=== PATIENT | male | born 1970 | race Caucasian/White ===

== ENCOUNTER 2021-03-01 09:46 | Emergency (ER) | payer MEDICAID ==
[~2021-03-01] VITALS: Ht 180.3 cm; Wt 113.4 kg
[2021-03-01 10:01] VITALS: BP 129/70
--- NOTE | 2021-03-01 10:08 | NUR ---
TENT 1
--- NOTE | 2021-03-01 10:16 | NUR ---
PT AMB TO BED 2.
--- NOTE | 2021-03-01 10:18 | NUR ---
C/O COUGH, BODY ACHE X 2 DAYS. 10/23 MID & LOWER BACK PAIN AFTER COUGHING. DENIES DYSURIA. COVID TESTED POSITIVE APR 2020. PMH: DENIES
[2021-03-01] MEDS ORDERED: PRED20TA5 PO (10:29)
[2021-03-01] MEDS ORDERED: IBUP-2213 PO (10:29)
[2021-03-01 11:42] VITALS: BP 124/82
--- NOTE | 2021-03-01 11:42 | NUR ---
Patient discharged with v/s stable. Written and verbal after care instructions given and explained. Patient alert, oriented and verbalized understanding of instructions. Ambulatory with steady gait. All questions addressed prior to discharge. ID band removed. Patient advised to follow up with PMD. Rx of IBUPROFEN AND PREDNISONE given. Patient educated on indication of medication including possible reaction and side effects. Opportunity to ask questions provided and answered.
== END 2021-03-01 11:42 | disposition home or self-care (01) ==
LOC: MED 09:46
DX: R05.9 Cough, unspecified (principal); M54.50 Low back pain, unspecified; F17.200 Nicotine dependence, unspecified, uncomplicated
CPT/HCPCS: 99283

== ENCOUNTER 2021-03-02 19:14 | Emergency (ER) | payer MEDICAID ==
[~2021-03-02] VITALS: Ht 180.3 cm; Wt 131.1 kg
[~2021-03-02 19:14] MED LIST: IBUP-2213 PO; PRED20TA5 PO
[2021-03-02 19:31] VITALS: BP 153/89
[2021-03-02] MEDS ORDERED: IBUPROFEN CHILDRENS 100 MG/5 ML UDC ONE (19:54)
--- NOTE | 2021-03-02 20:25 | NUR ---
SWABS FOR BRENTON RAHMAN, SENT TO LAB
--- NOTE | 2021-03-02 20:33 | NUR ---
NO NURSING INTERVENTIONS PROVIDED
--- NOTE | 2021-03-02 20:34 | NUR ---
PATIENT LEFT WITHOUT D/C PAPERWORK.
== END 2021-03-02 20:34 | disposition home or self-care (01) ==
LOC: MED 19:14
DX: R51.9 Headache, unspecified (principal); Z20.822 Contact with and (suspected) exposure to COVID-19; F17.210 Nicotine dependence, cigarettes, uncomplicated; Z79.899 Other long term (current) drug therapy; Z71.6 Tobacco abuse counseling
CPT/HCPCS: 87426; 99283; U0003

== ENCOUNTER 2021-04-23 22:05 | Emergency (ER) | payer MEDICAID ==
[~2021-04-23] VITALS: Ht 180.3 cm; Wt 124.7 kg
[2021-04-23] MEDS ORDERED: ALBUTEROL SULFATE/IPRATROPIU 3 ML SOL IH ONE ×2 (22:42→22:45)
[2021-04-23 23:04] VITALS: BP 156/84
[2021-04-23] MEDS ORDERED: predniSONE 20 MG TAB PO ONE (23:20)
[2021-04-24] MEDS ORDERED: BENZ200C4 PO (00:15)
[2021-04-24] MEDS ORDERED: ALBU0.0912 INH (00:15)
[2021-04-24] MEDS ORDERED: PRED20TA5 PO (00:15)
[2021-04-24 00:23] VITALS: BP 156/84
--- NOTE | 2021-04-24 00:24 | NUR ---
Patient discharged with v/s stable. Written and verbal after care instructions given and explained. Patient verbalized understanding. Ambulatory with steady gait. All questions addressed prior to discharge. Advised to follow up with PMD.
== END 2021-04-24 00:19 | disposition home or self-care (01) ==
LOC: MED 22:05
DX: J44.1 Chronic obstructive pulmonary disease with (acute) exacerbation (principal); R05.9 Cough, unspecified; Z79.899 Other long term (current) drug therapy
CPT/HCPCS: 71045; 94640; 99283; J7512; 99282

== ENCOUNTER 2021-05-29 15:56 | Emergency (ER) | payer MEDICAID ==
[~2021-05-29 15:56] MED LIST changes: +ALBU0.0912 INH; +BENZ200C4 PO
--- NOTE | 2021-05-29 16:50 | NUR ---
called name at this time, no answer in lobby or tent
--- NOTE | 2021-05-29 17:00 | NUR ---
called name at this time, no answer in lobby or tent
--- NOTE | 2021-05-29 17:29 | NUR ---
lwbs at this time
--- NOTE | 2021-05-29 17:29 | NUR ---
called name at this time, no answer in lobby or tent
--- NOTE | 2021-05-29 17:30 | NUR ---
PATIENT LEFT WITHOUT BEING SEEN BY DR. REDD. NO FURTHER CARE PROVIDED FOR PATIENT.
[2021-05-30] MEDS ORDERED: ONDA-188 SL (10:33)
[2021-05-30] MEDS ORDERED: NAPR-54 PO (10:33)
== END 2021-05-29 17:30 | disposition left against medical advice (07) ==
LOC: MED 15:56
DX: Z53.21 Procedure and treatment not carried out due to patient leaving prior to being seen by health care provider (principal)

== ENCOUNTER 2021-05-30 09:11 | Emergency (ER) | payer MEDICAID ==
[~2021-05-30] VITALS: Ht 180.3 cm; Wt 136.1 kg
[2021-05-30 09:23] VITALS: BP 154/77
[2021-05-30] MEDS ORDERED: ACETAMINOPHEN 325 MG TAB PO ONE (09:50)
[2021-05-30] MEDS ORDERED: ONDA-188 SL (10:33)
[2021-05-30] MEDS ORDERED: NAPR-54 PO (10:33)
[2021-05-30] MEDS ORDERED: ACETAMINOPHEN 325 MG TAB ONE (10:52)
--- NOTE | 2021-05-30 10:57 | NUR ---
50/M BIB SELF WITH C/O HEADACHE, NIGHT SWEATS AND URINARY FREQUENCY X3 DAYS. DENIES RECENT SICK CONTACTS, DENIES DYSURIA, HEMATURIA, FEVERS. REPORTS BEING TESTED FOR COVID YESTERDAY AND STATES TEST WAS NEGATIVE, STATES HE IS CURRENTLY ON ABX FOR AN INFECTED TOOTH AND IS UNSURE IF IT CAN BE RELATED TO SYMPTOMS. DENIES PAIN AT THIS TIME.
[2021-05-30 11:20] VITALS: BP 154/77
--- NOTE | 2021-05-30 11:20 | NUR ---
Patient discharged with v/s stable. Written and verbal after care instructions ABOUT HYPERGLYCEMIA AND VIRAL ILLNESS given and explained. Patient alert, oriented and verbalized understanding of instructions. Ambulatory with steady gait. All questions addressed prior to discharge. ID band removed. Patient advised to follow up with PMD. Rx of NAPROSYN AND ZOFRAN given. Patient educated on indication of medication including possible reaction and side effects. Opportunity to ask questions provided and answered.
== END 2021-05-30 11:20 | disposition home or self-care (01) ==
LOC: MED 09:11
DX: B34.9 Viral infection, unspecified (principal); E11.65 Type 2 diabetes mellitus with hyperglycemia; I10 Essential (primary) hypertension
CPT/HCPCS: 81002; 99283

== ENCOUNTER 2021-11-08 09:45 | Emergency (ER) | payer MEDICAID ==
[~2021-11-08] VITALS: Ht 154.9 cm; Wt 133.9 kg
[~2021-11-08 09:45] MED LIST changes: +NAPR-54 PO; +ONDA-188 SL
[2021-11-08 10:02] VITALS: BP 131/79
--- NOTE | 2021-11-08 10:11 | NUR ---
PATIENT AMBULATED TO BED 3
[2021-11-08] MEDS ORDERED: IBUPROFEN 600 MG TAB PO ONE (10:40)
[2021-11-08] MEDS ORDERED: ACETAMINOPHEN 325 MG TAB PO ONE (10:40)
--- NOTE | 2021-11-08 10:49 | NUR ---
pt c/o muscle cramps to bilateral legs x3 days, also c/o left wrist numbness intermittment x1 month.
--- NOTE | 2021-11-08 11:01 | NUR ---
PT PLACED IN VELCRO WRIST SPLINT. CMS WNL BEFORE AND AFTER.
[2021-11-08 11:06] LABS: ANION GAP 9.1 (8-16); CARBON DIOXIDE 29.3 mmol/L (21-32); CREATININE 1.1 mg/dL (0.6-1.3); POTASSIUM 4.4 mmol/L (3.5-5.1)
[2021-11-08 11:07] LABS: BASOPHILS % (AUTO) 0.8 % (0.0-2.0); EOSINOPHILS # (AUTO) 0.4 K/uL (0-0.4); EOSINOPHILS % (AUTO) 5.8 % (0.0-4.0); HEMATOCRIT 45.2 % (36-52); HEMOGLOBIN 15.5 g/dL (12.0-18.0); LYMPHOCYTES # (AUTO) 1.5 K/uL (2.0-11.5); LYMPHOCYTES % (AUTO) 24.2 % (20.5-51.1); MEAN CORPUSCULAR HEMOGLOBIN 30 pg (27-31); MEAN CORPUSCULAR HGB CONC 34 g/dL (33-37); MEAN CORPUSCULAR VOLUME 87.8 fL (80-94); MONOCYTES # (AUTO) 0.8 K/uL (0.8-1.0); MONOCYTES % (AUTO) 12.2 % (1.7-9.3); NEUTROPHILS # (AUTO) 3.6 K/uL (1.8-7.7); PLATELET COUNT (AUTO) 248 K/uL (140-450); RED BLOOD CELL COUNT(AUTO) 5.15 MIL/uL (4.20-6.10); RED CELL DISTRIBUTION WIDTH 13.3 % (11.6-13.7); WHITE BLOOD COUNT (AUTO) 6.4 K/uL (4.8-10.8)
[2021-11-08 11:11] LABS: MAGNESIUM 2.3 mg/dL (1.8-2.4)
[2021-11-08] MEDS ORDERED: NAPR-54 PO (11:29)
[2021-11-08] MEDS ORDERED: CYCL-654 PO (11:29)
--- NOTE | 2021-11-08 11:51 | NUR ---
Patient discharged with v/s stable. Written and verbal after care instructions given and explained. Patient alert, oriented and verbalized understanding of instructions. Ambulatory with steady gait. All questions addressed prior to discharge. ID band removed. Patient advised to follow up with PMD. Rx of flexeril, naproxen given. Patient educated on indication of medication including possible reaction and side effects. Opportunity to ask questions provided and answered.
== END 2021-11-08 11:50 | disposition home or self-care (01) ==
LOC: MED 09:45
DX: M62.838 Other muscle spasm (principal); G25.81 Restless legs syndrome; E11.9 Type 2 diabetes mellitus without complications; I10 Essential (primary) hypertension; Z79.1 Long term (current) use of non-steroidal anti-inflammatories (NSAID); Z79.899 Other long term (current) drug therapy
CPT/HCPCS: 36415; 80048; 81002; 82550; 83735; 85025; 99283

== ENCOUNTER 2021-11-29 07:43 | Emergency (ER) | payer MEDICAID ==
[~2021-11-29] VITALS: Ht 180.3 cm; Wt 134.3 kg
[~2021-11-29 07:43] MED LIST changes: +CYCL-654 PO; -IBUP-2213 PO
[2021-11-29 08:04] VITALS: BP 120/68
[2021-11-29] MEDS ORDERED: EPINEPHrine 1 MG/ML AMP IM ONE (08:20)
[2021-11-29] MEDS ORDERED: diphenhydrAMINE 50 MG/ML VIAL IVP ONE (08:20)
[2021-11-29] MEDS ORDERED: methylPREDNISolone SS 125 MG/2 ML VIAL IVP ONE (08:20)
--- NOTE | 2021-11-29 08:23 | NUR ---
Patient ambulated with steady gait to bed 8.
[2021-11-29 08:47] LABS: BASOPHILS # (AUTO) 0.1 K/uL (0.00-0.22); BASOPHILS % (AUTO) 0.8 % (0.0-2.0); EOSINOPHILS # (AUTO) 0.4 K/uL (0-0.4); EOSINOPHILS % (AUTO) 5.7 % (0.0-4.0); HEMATOCRIT 46.2 % (36-52); HEMOGLOBIN 15.9 g/dL (12.0-18.0); LYMPHOCYTES # (AUTO) 1.4 K/uL (2.0-11.5); LYMPHOCYTES % (AUTO) 19.8 % (20.5-51.1); MEAN CORPUSCULAR HEMOGLOBIN 30 pg (27-31); MEAN CORPUSCULAR HGB CONC 35 g/dL (33-37); MEAN CORPUSCULAR VOLUME 87.3 fL (80-94); MONOCYTES # (AUTO) 0.7 K/uL (0.8-1.0); MONOCYTES % (AUTO) 10.6 % (1.7-9.3); NEUTROPHILS # (AUTO) 4.4 K/uL (1.8-7.7); NEUTROPHILS % (AUTO) 63.1 % (42.2-75.2); PLATELET COUNT (AUTO) 255 K/uL (140-450); RED BLOOD CELL COUNT(AUTO) 5.29 MIL/uL (4.20-6.10); RED CELL DISTRIBUTION WIDTH 13.4 % (11.6-13.7)
--- NOTE | 2021-11-29 08:57 | NUR ---
PT IN GOWN ON BEDSIDE MONITOR
[2021-11-29] MEDS ORDERED: AMPICILLIN/SULBACTAM 3 GM in NACL 0.9% 100 ML IV ONE (09:25)
[2021-11-29 09:36] LABS: ALBUMIN 3.5 g/dL (3.4-5.0); ANION GAP 9.7 (8-16); CARBON DIOXIDE 31.3 mmol/L (21-32); CREATININE 1.1 mg/dL (0.6-1.3); TOTAL BILIRUBIN 0.2 mg/dL (0.0-1.0)
[2021-11-29] MEDS ORDERED: AMPICILLIN/SULBACTAM 3 GM VIAL ONE (09:36)
--- NOTE | 2021-11-29 09:52 | NUR ---
PT TO CT
--- NOTE | 2021-11-29 09:58 | NUR ---
50YR OLD MALE BIB SELF C/O THROAT "SWELLING" X THIS AM. DENIES SOB DENIES CP . SP02 93-94% RA SPEAKING IN FULL SENTENCES. PT ON BEDSIDE MONITOR. HOB ELEVATED. PT STATES NO KNOWN ALLERGIES TO DRUG OR FOOD. 20G IV CATH PLACED L AC. SIDE RAILS UP X1 BED AT LOWEST POSITION NKDA NO HX TO DATE
[2021-11-29 10:55] VITALS: BP 111/57
[2021-11-29] MEDS ORDERED: METF-346 PO (11:29)
[2021-11-29] MEDS ORDERED: HYDR-4004 PO (11:30)
--- NOTE | 2021-11-29 11:34 | NUR ---
TRANSFER TO HIGHER LEVEL OF CARE
--- NOTE | 2021-11-29 11:41 | NUR ---
PT RESTING RESP EVEN AND UNLABORED . PT ON MONITOR . AMBULATE TO BATHROOM WITH STEADY GAIT
--- NOTE | 2021-11-29 11:49 | NUR ---
COVID SWAB COLLECTED
--- NOTE | 2021-11-29 13:05 | NUR ---
PT ON FULL LIQUID DIET PER DR LAKE
[2021-11-29] MEDS ORDERED: KETOROLAC 15 MG/ML VIAL IVP ONE (15:30)
--- NOTE | 2021-11-29 16:00 | NUR ---
DR BLANCO SPOKE WITH PATIENT ON THE RISK ON OF AMA. PATIENT WANTS TO CONTINUE TO SIGN OUT FOR REASONS OF WORK RELATED ISSUES. PATIENT HAS VERBALLY EXPRESSED THE UNDERSTANDING OF AMA AND HIS HEALTH. HE WOULD LIKE TO CONTINUE WITH SIGNING OUT AMA AND HAS INTENTIONS OF BEING SEEN AT A HIGHER LEVEL OF CARE THERE AFTER
[2021-11-29] MEDS ORDERED: AMOX1TAB8 PO (16:20)
[2021-11-29] MEDS ORDERED: DEXA6TAB8 PO (16:20)
[2021-11-29] MEDS ORDERED: IBUP-2213 PO (16:20)
[2021-11-29] MEDS ORDERED: FAMO-90 PO (16:20)
--- NOTE | 2021-11-29 16:20 | NUR ---
Patient does not wish to proceed with medical care recommended by DR BLANCO. Patient given information related to possible complications, up to and including , which could occur as a result of leaving hospital at this time. Patient verbalizes understanding of risks involved leaving against medical advice. Patient has signed AMA form.
== END 2021-11-29 16:20 | disposition left against medical advice (07) ==
LOC: MED 07:43
DX: R07.0 Pain in throat (principal); Z20.822 Contact with and (suspected) exposure to COVID-19; K12.2 Cellulitis and abscess of mouth; J03.90 Acute tonsillitis, unspecified; E11.9 Type 2 diabetes mellitus without complications; I10 Essential (primary) hypertension; Z79.84 Long term (current) use of oral hypoglycemic drugs; Z79.899 Other long term (current) drug therapy
CPT/HCPCS: 36415; 70491; 80053; 85025; 85651; 86140; 87040; 87426; 87804; 96365; 96372; 96375; 99285; J0171; J0295; J1200; J1885; J2930; Q9967

== ENCOUNTER 2021-12-24 15:10 | Emergency (ER) | payer MEDICAID ==
[~2021-12-24] VITALS: Ht 180.3 cm; Wt 133.9 kg
[~2021-12-24 15:10] MED LIST changes: -ALBU0.0912 INH; +AMOX1TAB8 PO; -BENZ200C4 PO; -CYCL-654 PO; +DEXA6TAB8 PO; +FAMO-90 PO; +HYDR-4004 PO; +IBUP-2213 PO; +METF-346 PO; -NAPR-54 PO; -ONDA-188 SL; -PRED20TA5 PO
[2021-12-24 15:24] VITALS: BP 101/70
--- NOTE | 2021-12-24 15:34 | NUR ---
PT AMBULATED TO ER BED 1
--- NOTE | 2021-12-24 15:41 | NUR ---
WALKED IN C/O FATIGUE, DIZZINESS AND VOMITING ONSET TODAY. STATES TAKING AT HOME COVID TEST AND RESULTED NEGATIVE. PT STATES FEELING WEAK FOR 4 DAYS. VS 154. AAOX4, AMBULATORY, AFEBRILE AT BEDSIDE. HX: PREDM, COPD, HTN.
[2021-12-24] MEDS ORDERED: KETOROLAC 30 MG/ML VIAL IVP ONE (15:50)
[2021-12-24] MEDS ORDERED: NACL 0.9% 1,000 ML IV SCH (15:50)
[2021-12-24] MEDS ORDERED: ONDANSETRON 4 MG/2 ML VIAL IVP ONE (16:00)
[2021-12-24 16:24] LABS: BASOPHILS # (AUTO) 0.1 K/uL (0.00-0.22); BASOPHILS % (AUTO) 0.5 % (0.0-2.0); EOSINOPHILS # (AUTO) 0.3 K/uL (0-0.4); EOSINOPHILS % (AUTO) 2.1 % (0.0-4.0); HEMATOCRIT 49.7 % (36-52); HEMOGLOBIN 16.8 g/dL (12.0-18.0); LYMPHOCYTES # (AUTO) 1.3 K/uL (2.0-11.5); LYMPHOCYTES % (AUTO) 10.9 % (20.5-51.1); MEAN CORPUSCULAR HEMOGLOBIN 30 pg (27-31); MEAN CORPUSCULAR HGB CONC 34 g/dL (33-37); MEAN CORPUSCULAR VOLUME 87.9 fL (80-94); MONOCYTES # (AUTO) 1.2 K/uL (0.8-1.0); NEUTROPHILS # (AUTO) 9.2 K/uL (1.8-7.7); NEUTROPHILS % (AUTO) 76.5 % (42.2-75.2); PLATELET COUNT (AUTO) 328 K/uL (140-450); RED BLOOD CELL COUNT(AUTO) 5.65 MIL/uL (4.20-6.10); RED CELL DISTRIBUTION WIDTH 13.5 % (11.6-13.7); WHITE BLOOD COUNT (AUTO) 12.1 K/uL (4.8-10.8)
[2021-12-24 16:43] LABS: ALBUMIN 3.8 g/dL (3.4-5.0); ANION GAP 11.7 (8-16); ASPARTATE AMINOTRANSFERASE 34 U/L (15-37); CHLORIDE 101 mmol/L (98-107); CREATININE 2.4 mg/dL (0.6-1.3); FREE T4 (FREE THYROXINE) 0.83 ng/dL (0.76-1.46); GFR ARICAN-AMERICAN 37 mL/min (>90); GLUCOSE 117 mg/dL (74-106); POTASSIUM 4.7 mmol/L (3.5-5.1); SODIUM SERUM 140 mmol/L (136-145); TOTAL BILIRUBIN 0.3 mg/dL (0.0-1.0); UREA NITROGEN, BLOOD 29 mg/dL (7-18)
[2021-12-24 17:51] VITALS: BP 119/68
--- NOTE | 2021-12-25 08:31 | NUR ---
LATE ENTRY. NS 0.9% BOLUS DISCONTINUED AT 1908 ON 12/24/21
== END 2021-12-24 19:08 | disposition home or self-care (01) ==
LOC: MED 15:10
DX: N17.9 Acute kidney failure, unspecified (principal); Z20.822 Contact with and (suspected) exposure to COVID-19; E86.0 Dehydration; R53.1 Weakness; E11.9 Type 2 diabetes mellitus without complications; I10 Essential (primary) hypertension; F17.210 Nicotine dependence, cigarettes, uncomplicated; Z79.899 Other long term (current) drug therapy; Z79.84 Long term (current) use of oral hypoglycemic drugs
CPT/HCPCS: 36415; 80053; 81002; 82550; 84439; 84484; 85025; 87426; 87804; 93005; 96361; 96374; 99284; J2405; J7030

== ENCOUNTER 2022-04-12 14:22 | Emergency (ER) | payer MEDICAID ==
[~2022-04-12] VITALS: Ht 180.3 cm; Wt 127.0 kg
[2022-04-12 15:01] VITALS: BP 142/90
[2022-04-12 15:25] LABS: BASOPHILS # (AUTO) 0.1 K/uL (0.00-0.22); BASOPHILS % (AUTO) 0.6 % (0.0-2.0); EOSINOPHILS # (AUTO) 0.3 K/uL (0-0.4); EOSINOPHILS % (AUTO) 2.6 % (0.0-4.0); HEMOGLOBIN 15.8 g/dL (12.0-18.0); LYMPHOCYTES # (AUTO) 0.7 K/uL (2.0-11.5); LYMPHOCYTES % (AUTO) 6.4 % (20.5-51.1); MEAN CORPUSCULAR HEMOGLOBIN 30 pg (27-31); MEAN CORPUSCULAR HGB CONC 34 g/dL (33-37); MEAN CORPUSCULAR VOLUME 87.2 fL (80-94); MONOCYTES % (AUTO) 9.9 % (1.7-9.3); NEUTROPHILS # (AUTO) 8.2 K/uL (1.8-7.7); NEUTROPHILS % (AUTO) 80.5 % (42.2-75.2); PLATELET COUNT (AUTO) 198 K/uL (140-450); RED BLOOD CELL COUNT(AUTO) 5.28 MIL/uL (4.20-6.10); RED CELL DISTRIBUTION WIDTH 13.1 % (11.6-13.7); WHITE BLOOD COUNT (AUTO) 10.2 K/uL (4.8-10.8)
[2022-04-12] MEDS ORDERED: KETOROLAC 30 MG/ML VIAL ONE (15:54)
[2022-04-12] MEDS ORDERED: KETOROLAC 30 MG/ML VIAL IM ONE (15:55)
[2022-04-12 15:58] LABS: ALBUMIN 3.7 g/dL (3.4-5.0); ANION GAP 11.9 (8-16); CARBON DIOXIDE 30.5 mmol/L (21-32); CREATININE 1.3 mg/dL (0.6-1.3); POTASSIUM 4.4 mmol/L (3.5-5.1); TOTAL BILIRUBIN 0.4 mg/dL (0.0-1.0)
--- NOTE | 2022-04-12 16:00 | NUR ---
SWABBED AND SENT TO LAB
[2022-04-12] MEDS ORDERED: ONDA-188 SL (17:28)
[2022-04-12] MEDS ORDERED: ROBAC PO (17:28)
[2022-04-12] MEDS ORDERED: IBUP-2213 PO (17:28)
[2022-04-12] MEDS ORDERED: TAM75 PO (17:51)
--- NOTE | 2022-04-12 17:51 | NUR ---
Patient discharged with v/s stable. Written and verbal after care instructions ABOUT MUSCLE PAIN, VIRAL ILLNESS given and explained. Patient alert, oriented and verbalized understanding of instructions. Ambulatory with steady gait. All questions addressed prior to discharge. ID band removed. Patient advised to follow up with PMD. Rx of TAMIFLU, GUAIFENESIN-CODEINE SYRUP, ZOFRAN ODT, IBUPROFEN given. Patient educated on indication of medication including possible reaction and side effects. Opportunity to ask questions provided and answered.
== END 2022-04-12 17:51 | disposition home or self-care (01) ==
LOC: MED 14:22
DX: J10.1 Influenza due to other identified influenza virus with other respiratory manifestations (principal); Z20.822 Contact with and (suspected) exposure to COVID-19; I10 Essential (primary) hypertension; E11.9 Type 2 diabetes mellitus without complications; Z79.4 Long term (current) use of insulin; Z79.899 Other long term (current) drug therapy
CPT/HCPCS: 36415; 80053; 83690; 85025; 87426; 87804; 96372; 99283; J1885

== ENCOUNTER 2022-10-04 17:33 | Emergency (ER) | payer MEDICAID ==
[~2022-10-04] VITALS: Ht 180.3 cm; Wt 124.7 kg
[~2022-10-04 17:33] MED LIST changes: +ONDA-188 SL; +ROBAC PO; +TAM75 PO
[2022-10-04 18:57] VITALS: BP 119/89
[2022-10-04] MEDS ORDERED: KETOROLAC 60 MG/2 ML VIAL IM ONE (23:55)
[2022-10-05] MEDS ORDERED: POTA8CAP4 PO (00:04)
--- NOTE | 2022-10-05 00:10 | NUR ---
Patient discharged with v/s stable. Written and verbal after care instructions given and explained. Patient alert, oriented and verbalized understanding of instructions. Ambulatory with steady gait. All questions addressed prior to discharge. ID band removed. Patient advised to follow up with PMD. Rx of POTASSIUM CHLORIDE given. Patient educated on indication of medication including possible reaction and side effects. Opportunity to ask questions provided and answered.
== END 2022-10-05 00:10 | disposition home or self-care (01) ==
LOC: MED 17:33
DX: R25.2 Cramp and spasm (principal); E11.9 Type 2 diabetes mellitus without complications; I10 Essential (primary) hypertension; Z79.899 Other long term (current) drug therapy; Z79.1 Long term (current) use of non-steroidal anti-inflammatories (NSAID)
CPT/HCPCS: 93971; 96372; 99285; J1885; Q0092

== ENCOUNTER 2022-10-11 06:15 | Emergency (ER) | payer MEDICAID ==
[~2022-10-11] VITALS: Ht 180.3 cm; Wt 124.7 kg
[~2022-10-11 06:15] MED LIST changes: +POTA8CAP4 PO
[2022-10-11 06:25] VITALS: BP 113/79
--- NOTE | 2022-10-11 06:31 | NUR ---
PT TAKEN TO BED 4
[2022-10-11 06:35] VITALS: BP 113/79
--- NOTE | 2022-10-11 06:35 | NUR ---
Dr. Duncan examining patient.
[2022-10-11] MEDS ORDERED: KETOROLAC 60 MG/2 ML VIAL IM ONE (06:40)
[2022-10-11] MEDS ORDERED: IBUP-2213 PO (06:46)
[2022-10-11] MEDS ORDERED: ACET-8905 PO (06:46)
--- NOTE | 2022-10-11 08:06 | NUR ---
crutches given and pt returned safe demonstration.
--- NOTE | 2022-10-11 08:19 | NUR ---
Patient discharged with v/s stable. Written and verbal after care instructions given and explained. Patient alert, oriented and verbalized understanding of instructions. Ambulatory with steady gait. All questions addressed prior to discharge. ID band removed. Patient advised to follow up with PMD. Rx of norco, ibuprofen given. Patient educated on indication of medication including possible reaction and side effects. Opportunity to ask questions provided and answered.
== END 2022-10-11 08:17 | disposition home or self-care (01) ==
LOC: MED 06:15
DX: M25.561 Pain in right knee (principal); I10 Essential (primary) hypertension; E11.9 Type 2 diabetes mellitus without complications; Z79.4 Long term (current) use of insulin; Z79.899 Other long term (current) drug therapy
CPT/HCPCS: 96372; 99283; J1885

== ENCOUNTER 2023-04-03 10:01 | Emergency (ER) | payer MEDICAID ==
[~2023-04-03] VITALS: Ht 180.3 cm; Wt 129.3 kg
[~2023-04-03 10:01] MED LIST changes: +ACET-8905 PO
[2023-04-03 10:07] VITALS: BP 125/87; PULSE 80; RESP 16; TEMP 97.9; O2SAT 97
== END 2023-04-03 12:48 | disposition left against medical advice (07) ==
LOC: MED 10:01
DX: R51.9 Headache, unspecified (principal); R35.0 Frequency of micturition; H53.8 Other visual disturbances; R11.0 Nausea; Z53.21 Procedure and treatment not carried out due to patient leaving prior to being seen by health care provider
CPT/HCPCS: 82948; 99281

== ENCOUNTER 2023-05-11 22:11 | Emergency (ER) | payer MEDICAID ==
[~2023-05-11] VITALS: Ht 180.3 cm; Wt 131.5 kg
[2023-05-11 23:14] VITALS: BP 137/93; PULSE 108; RESP 20; TEMP 100.4; O2SAT 98
[2023-05-12 00:21] LABS: FLU A ANTIGEN negative (NEGATIVE); FLU B ANTIGEN NEGATIVE (NEGATIVE)
[2023-05-12] MEDS ORDERED: KETOROLAC 30 MG/ML VIAL IM ONE (01:20)
[2023-05-12] MEDS ORDERED: IBUP-1842 PO (01:20)
[2023-05-12] MEDS ORDERED: ACETAMINOPHEN EXTRA STRENGTH 500 MG TAB PO ONE (01:20)
== END 2023-05-12 02:00 | disposition home or self-care (01) ==
LOC: MED 22:11
DX: J06.9 Acute upper respiratory infection, unspecified (principal); R00.0 Tachycardia, unspecified; M79.18 Myalgia, other site; Z20.822 Contact with and (suspected) exposure to COVID-19; Z79.899 Other long term (current) drug therapy; Z79.1 Long term (current) use of non-steroidal anti-inflammatories (NSAID); Z79.2 Long term (current) use of antibiotics
CPT/HCPCS: 87426; 87804; 96372; 99283; J1885

== ENCOUNTER 2023-06-09 13:25 | Emergency (ER) | payer MEDICAID ==
[~2023-06-09] VITALS: Ht 180.3 cm; Wt 127.0 kg
[~2023-06-09 13:25] MED LIST changes: +IBUP-1842 PO
[2023-06-09 13:52] VITALS: BP 127/82; PULSE 92; RESP 20; TEMP 98.7; O2SAT 97
[2023-06-09] MEDS ORDERED: ACETAMINOPHEN EXTRA STRENGTH 500 MG TAB PO ONE (14:20)
[2023-06-09 15:08] LABS: FLU A ANTIGEN negative (NEGATIVE); FLU B ANTIGEN negative (NEGATIVE)
[2023-06-09] MEDS ORDERED: BENZ200C4 PO (15:11)
[2023-06-09] MEDS ORDERED: ACET-10509 PO (15:11)
[2023-06-09] MEDS ORDERED: DEXT15SY7 PO (15:11)
[2023-06-09] MEDS ORDERED: IBUP-1842 PO (15:11)
== END 2023-06-09 15:40 | disposition home or self-care (01) ==
LOC: MED 13:25
DX: J06.9 Acute upper respiratory infection, unspecified (principal); Z20.822 Contact with and (suspected) exposure to COVID-19; Z79.899 Other long term (current) drug therapy
CPT/HCPCS: 71046; 99284

== ENCOUNTER 2023-10-06 10:14 | Emergency (ER) | payer MEDICAID, OTHER ==
[~2023-10-06] VITALS: Ht 180.3 cm; Wt 131.5 kg
[~2023-10-06 10:14] MED LIST changes: +ACET-10509 PO; +BENZ200C4 PO; +DEXT15SY7 PO
[2023-10-06 10:27] VITALS: BP 148/80; PULSE 90; RESP 18; TEMP 98.9; O2SAT 97
[2023-10-06 11:32] LABS: FLU A ANTIGEN negative (NEGATIVE); FLU B ANTIGEN negative (NEGATIVE)
[2023-10-06] MEDS: KETOROLAC 30 MG/ML VIAL IM ONE (12:43)
[2023-10-06] MEDS ORDERED: ALBU0.0912 IH (13:33)
[2023-10-06 13:53] VITALS: BP 152/80; PULSE 78; RESP 18; TEMP 98.9; O2SAT 97
== END 2023-10-06 13:51 | disposition home or self-care (01) ==
LOC: MED 10:14
DX: B34.9 Viral infection, unspecified (principal); Z20.822 Contact with and (suspected) exposure to COVID-19; Z79.84 Long term (current) use of oral hypoglycemic drugs; Z79.1 Long term (current) use of non-steroidal anti-inflammatories (NSAID); Z79.2 Long term (current) use of antibiotics; Z79.899 Other long term (current) drug therapy
CPT/HCPCS: 71045; 87426; 87804; 93005; 96372; 99285; J1885